=== PATIENT | male | born 1965 | race Caucasian/White ===

== ENCOUNTER 2016-12-18 10:05 | Emergency (ER) | payer OTHER ==
--- NOTE | ~2016-12-18 | EKG ---
PATIENT: AMANDA HILL UNIT #: [id number] Ventricular Rate: 74 BPM Atrial Rate: 74 BPM P-R Interval: 186 ms QRS Duration: 112 ms Q-T Interval: 366 ms QTC Calculation(Bezet): 406 ms P [place]: 13 degrees Calculated R [place]: 39 degrees Calculated T [place]: 45 degrees Diagnosis Line: Normal sinus rhythm Diagnosis Line: Normal ECG Diagnosis Line: No previous ECGs available Diagnosis Line: Confirmed by ROSEMARY ZAFAR MD ([id number]) on 12/18/2016 Diagnosis Line: 11:33:45 PM INTERPRETING MD: ANDRADE LIMA
--- NOTE | ~2016-12-18 | CR72 ---
[facility] A Service of [facility] RADIOLOGY TEXT RESULTS PATIENT: AMANDA HILL LOCATION: GEE : 67 UNIT #: [id number] AGE: [address]: Rosana Kent APRN SEX: M ORDER DR: [id number] [facility] [address] [place], [place] [address] [id number] E MR#: [id number] Acc #: [id number] NAME: AMANDA HILL : 1965 SEX: M STUDY DATE/TIME: 12/18/2016 UNIT: [facility] ROOM: STUDY DESCRIPTION: CR Chest Single View Portable Attending Physician: Rosana Kent A.P.R.N. Ordering Physician: Ed Marco Zavala M.D. Primary Care Physician: Penny Parks M.D. MEDICAL IMAGING REPORT This report is preliminary unless electronic signature is present EXAM Chest, portable, 12/18/2016, 1015 hours. HISTORY 51-year-old man who describes shakiness and weakness and insulin reaction today with near syncopal episode. Short of air today. COMPARISON 01/04/2013 FINDINGS Portable upright chest demonstrates heart size at the upper limits of normal. Aortic contours are normal. Lungs are well expanded and clear. There is no effusion or pneumothorax. IMPRESSION No acute cardiopulmonary findings. Heart size at the upper limits of normal. No edema, pneumonia, or effusion. Dictated by... Nhi Flanagan M.D. THIS IS AN ELECTRONICALLY VERIFIED REPORT Nhi Flanagan M.D. at 12/18/2016 2:31 PM Bonilla TD: 12/18/2016 12:50 JOB #: [id number] MEDICAL IMAGING REPORT [facility] A Service [facility] RADIOLOGY TEXT RESULTS PATIENT: AMANDA HILL LOCATION: GEE : 67 UNIT #: [id number] AGE: [address]: Rosana Kent APRN SEX: M ORDER DR: Page 1 of 1 COPY
[2016-12-18 09:50] LABS: BASOPHIL# 0.1 X10e3 (0-0.3); BASOPHIL% 0.7 % (0-2.5); EOSINOPHIL# 0.1 X10e3 (0-0.7); HEMOGLOBIN 14.4 gm/dL (13.0-16.0); LYMPHOCYTE# 1.4 X10e3 (1.0-3.5); LYMPHOCYTE% 11.3 % (17.0-45.0); MEAN CELL VOLUME 87.7 FL (83-96); MEAN CORPUSCULAR HEMOGLOBIN 29.3 PG (28-34); MEAN CORPUSCULAR HGB CONC 33.4 g/dL (30-36); MONOCYTE% 8.1 % (3.0-12.0); NEUTROPHIL# 9.9 X10e3 (1.5-7.1); NEUTROPHIL% 78.9 % (40-75); PLATELET COUNT 334 X10e3 (140-420); RED CELL DISTRIBUTION WIDTH 13.2 % (11.0-15.5); WHITE BLOOD COUNT 12.6 X10e3 (4.0-10.5)
[2016-12-18 09:51] LABS: DIFF IND NO
[~2016-12-18 10:05] MED LIST: AMITRYPTYLINE PO; ATENOLOL PO; BABY; BENTYL20 M1 PO; CLARITIN10 MG PO; CLARITIN5 MG; HCTZ PO; HUMALOG100 U/ML SUBQ; LANTUS100 U/ML INJ; LISINOPRIL PO; LORATADINE PO; LYRICA PO; LYRICA75 MG PO; NEXIUM PO; PHENERGAN PO; REGLAN10 MG PO; SIMVASTATIN20 MG PO; ZOLOFT PO
[2016-12-18 10:12] LABS: POC - CKMB 2.8 ng/mL (0.0-7.9); POC - TROPONIN <0.05 ng/mL (<=0.05)
[2016-12-18 10:23] LABS: ALBUMIN SERUM 4.1 g/dL (3.5-5.0); BILIRUBIN,TOTAL 0.2 mg/dL (0.2-2.0); BUN/CREATININE RATIO 13.33; CALCIUM SERUM 9.4 mg/dL (8.4-10.2); CREATININE SERUM 0.9 mg/dL (0.6-1.4); GLOM FILT RATE Estimated 99.2 mL/min (>60); POTASSIUM 3.9 mmol/L (3.5-5.1); PROTEIN TOTAL SERUM 7.4 g/dL (6.0-8.3)
[2016-12-18 11:40] LABS: URINE SOURCE CLEAN CATCH
[2016-12-18 11:44] LABS: URINE APPEARANCE CLEAR; URINE BILIRUBIN NEG (NEG); URINE BLOOD NEG (NEG); URINE COLOR YELLOW; URINE GLUCOSE NEG (NEG); URINE KETONE NEG (NEG); URINE LEUKOCYTE ESTERASE NEG (NEG); URINE NITRATE NEG (NEG); URINE PH 6.5 (5-8); URINE PROTEIN NEG (NEG); URINE SPECIFIC GRAVITY 1.004 (1.003-1.035); URINE UROBILINOGEN 0.2 MG/DL (NEG)
[2016-12-18 11:50] LABS: CULTURE INDICATED? NO
== END 2016-12-18 12:20 | disposition home or self-care (01) ==
LOC: CED 10:05
PROVIDERS: Nurse Practitioner
DX: E16.2 Hypoglycemia, unspecified (principal); E11.9 Type 2 diabetes mellitus without complications; K21.9 Gastro-esophageal reflux disease without esophagitis; I10 Essential (primary) hypertension; Z88.0 Allergy status to penicillin
CPT/HCPCS: 36415; 71010; 80053; 81003; 82553; 82947; 84484; 85025; 93005; 99284